=== PATIENT | male | born 1950 | race Caucasian/White ===

== ENCOUNTER 2024-10-17 20:07 | Emergency (ER) | payer MEDICARE ==
[~2024-10-17] VITALS: Ht 182.9 cm; Wt 123.8 kg
[2024-10-17 20:14] VITALS: TEMP 97.6
[2024-10-17 20:52] LABS: BASOPHILS # (AUTO) 0.05 K/uL (0.00-0.20); BASOPHILS % (AUTO) 0.8 % (0.0-5.0); EOSINOPHILS # (AUTO) 0.22 K/uL (0.00-0.70); EOSINOPHILS % (AUTO) 3.6 % (0.0-8.0); HEMATOCRIT 42.7 % (42-54); IMMATURE GRANULOCYTE ABSOLUTE 0.01 K/uL (0-1); LYMPHOCYTES # (AUTO) 2.6 K/uL (1.0-4.8); LYMPHOCYTES % (AUTO) 42.6 % (21.0-51.0); MEAN CORPUSCULAR HEMOGLOBIN 27.7 pg (27.0-33.0); MEAN CORPUSCULAR HGB CONC 32.6 g/dL (32.0-36.0); MEAN CORPUSCULAR VOLUME 85.1 fL (79-99); MONOCYTES # (AUTO) 0.6 K/uL (0.1-1.0); MONOCYTES % (AUTO) 9.5 % (3.0-13.0); NEUTROPHILS # (AUTO) 2.6 K/uL (1.8-7.7); NEUTROPHILS % (AUTO) 43.3 % (40.0-77.0); PLATELET COUNT (AUTO) 242 K/uL (130-400); RED BLOOD CELL COUNT(AUTO) 5.02 MIL/uL (4.50-6.20); RED CELL DISTRIBUTION WIDTH 14.5 % (11.0-15.5); WHITE BLOOD COUNT (AUTO) 6.1 K/uL (4.8-10.8)
[2024-10-17 21:07] LABS: CREATININE 1.2 mg/dL (0.5-1.3); POTASSIUM 4.2 mmol/L (3.5-5.1)
--- NOTE | 2024-10-17 21:58 | NUR ---
FINGER STICK GLUCOSE 109
[2024-10-17 22:12] VITALS: BP 152/79; PULSE 67; RESP 18; O2SAT 98
--- NOTE | 2024-10-17 22:21 | ERN ---
General Chief Complaint: Hypoglycemia Stated Complaint: LOW DIABETIC READINGS Time Seen by MD: 20:09 Time Seen by Midlevel: 20:09 Source: patient History of Present Illness Initial Comments Patient is a 74-year-old male with a past medical history of type 2 diabetes and hypertension presenting to the emergency department for evaluation of hypoglycemia. Patient reports feeling lightheaded and proceeded to check his sugar and it was allegedly in the 40s. The patient was given juice and candy with improvement blood sugar. However, throughout the day his glucometer has been reading "low" so he decided to report to the ER for further evaluation. Patient has no complaints on arrival. Patient states he takes Ozempic, metformin, and a long-acting insulin. Allergies: Coded Allergies: No Known Allergies (Unverified Allergy, Unknown, 10/17/24) Past Medical History Past Medical History: Diabetes-Type II, Hypertension Past Surgical History: None ROS Dictation CONSTITUTIONAL: Negative except for HPI HEAD/FACE: Negative except for HPI EENT: Negative except for HPI RESPIRATORY: Negative except for HPI GASTROINTESTINAL/ABDOMINAL: Negative except for HPI GENITOURINARY: Negative except for HPI MUSCULOSKELETAL: Negative except for HPI INTEGUMENTARY: Negative except for HPI NEUROLOGICAL/PSYCH: Negative except for HPI HEMATOLOGIC/LYMPHATIC: Negative except for HPI All Systems Negative, Except as noted above. 13 point review of systems assessed and all negative except for above. Physical Exam Physical Exam Dictation Vital Signs reviewed General Appearance: Alert, oriented x 3, no acute distress, well developed, nourished. Head and Face: non-traumatic. Eyes: PERRL, pink conjunctivas, eyelid no trauma, anterior chamber with arcus se nilis. Ears: Pinnas intact and no signs of trauma or erythema ear canals clear and no discharge TM no erythema Nose: No discharge, no bleeding. Oropharynx: Mouth normal, tongue pink, pharynx clear,no erythema, tonsils no exudates, no abscesses noted, mucous membrane moist Neck: Supple, non-tender, no thyromegaly, no masses, no JVD, no bruits Breast:Deferred Chest:No tenderness, no crepitus, no paradoxical movement, no retractions Lungs:Clear, well-ventilated, symmetric, no rales, no wheezing, no rhonchi, no stridor, good breath sounds bilaterally Heart: Regular rate, regular rhythm, no murmur, no gallops Vascular: no peripheral edema, Abdomen: Soft, positive bowel sounds, nondistended, no guarding, nontender, no rebound, no masses no hepatomegaly, no splenomegaly, no Reyes's sign, no hernias. Rectal: Deferred Genital: Deferred Neurological: Normal speech, motor function intact, sensory function intact Musculoskeletal: Neck nontender, full range of motion, back nontender, full range of motion, Extremities: nontender, full range of motion Skin: Color pink, dry, no turgor, no rash, no lacerations, no abrasions, no contusions. Lymphatic: Deferred Results Laboratory and Microbiology Lab and Micro Result Laboratory Tests Test 10/17/24 20:13 10/17/24 20:29 10/17/24 21:56 Whole Blood Glucose 131 MG/DL (70-110) H 109 MG/DL (70-110) White Blood Count 6.1 K/uL (4.8-10.8) Red Blood Count 5.02 MIL/uL (4.50-6.20) Hemoglobin 13.9 g/dL (14.0-18.0) L Hematocrit 42.7 % (42-54) Mean Corpuscular Volume 85.1 fL (79-99) Mean Corpuscular Hemoglobin 27.7 pg (27.0-33.0) Mean Corpuscular Hemoglobin Concent 32.6 g/dL (32.0-36.0) Red Cell Distribution Width 14.5 % (11.0-15.5) Platelet Count 242 K/uL (130-400) Mean Platelet Volume 9.3 fL (7.5-10.5) Immature Granulocyte % (Auto) 0.2 % (0-1) Neutrophils (%) (Auto) 43.3 % (40.0-77.0) Lymphocytes (%) (Auto) 42.6 % (21.0-51.0) Monocytes (%) (Auto) 9.5 % (3.0-13.0) Eosinophils (%) (Auto) 3.6 % (0.0-8.0) Basophils (%) (Auto) 0.8 % (0.0-5.0) Neutrophils # (Auto) 2.6 K/uL (1.8-7.7) Lymphocytes # (Auto) 2.6 K/uL (1.0-4.8) Monocytes # (Auto) 0.6 K/uL (0.1-1.0) Eosinophils # (Auto) 0.22 K/uL (0.00-0.70) Basophils # (Auto) 0.05 K/uL (0.00-0.20) Absolute Immature Granulocyte (auto 0.01 K/uL (0-1) Nucleated Red Blood Cells 0.0 % (0.0-0.19) Sodium Level 143 mmol/L (136-145) Potassium Level 4.2 mmol/L (3.5-5.1) Chloride Level 105 mmol/L (101-111) Carbon Dioxide Level 28 mmol/L (21-32) Blood Urea Nitrogen 22 mg/dL (7-18) H Creatinine 1.2 mg/dL (0.5-1.3) Glomerular Filtration Rate Calc 63 mL/min (>90) Random Glucose 119 mg/dL (70-105) H Total Calcium 8.8 mg/dL (8.5-10.1) Labs Reviewed?: Yes MDM MDM: Patient is a 74-year-old male with a past medical history of type 2 diabetes and hypertension presenting to the emergency department for evaluation of hypoglycemia. Patient reports feeling lightheaded and proceeded to check his sugar and it was allegedly in the 40s. The patient was given juice and candy with improvement blood sugar. However, throughout the day his glucometer has been reading "low" so he decided to report to the ER for further evaluation. Patient has no complaints on arrival. Patient states he takes Ozempic, metformin, and a long-acting insulin. On physical examination patient is in no acute distress. He was able to ambulate from the waiting room into the triaged area without assistance and with a normal gait. During my examination his sense her read low however fingerstick glucose revealed a glucose in the 130s. It appears his sensor/glucometer may be faulty. Plan was to obtain labs and observe patient for the next 1-2 hours. His CBC shows a normal white blood cell count of 6.1. His hemoglobin is stable at 13.9. His platelet counts are normal. His chemistries reveal a random glucose of 119. The patient was observed in the emergency department for an hour and a half. A repeat fingerst ick glucose was obtained which was 109. It appears his blood sugars trending downwards. The patient was offered something a eat but he refused stating that he will be eating when he gets home. I did offer admission for observation at least for 24 hours but he is refusing. Patient states he will be going home and eating dinner. is at bedside and states she will be checking him periodically throughout the night. If anything changes overnight they were advised to report to the ER for further evaluation. They will be calling his primary care doctor in the morning for a new prescription for a sensor/glucometer. The remainder of his chemistries are unremarkable. Patient will be discharged home with close return precautions Differential diagnosis: Hypoglycemia, electrolyte abnormality, dehydration There are no social concerns with this patient. Prescription drug management Prescriptions will include: None Medical management and examination interpretation discussions were had by me with other qualified healthcare professionals as indicated for the patient's care. ED Course Orders Procedure Category Date Status Time Cbc With Differential LAB 10/17/24 Complete 20:16 Basic Metabolic Panel LAB 10/17/24 Complete 20:16 Bedside Glucose CPOE 10/17/24 Transmitted Fingerstick 21:18 Vital Signs Date Time Temp Pulse Resp B/P (MAP) Pulse Ox O2 Delivery O2 Flow Rate FiO2 10/17/24 22:12 67 18 152/79 98 Room Air* 0 21 10/17/24 20:14 97.5 74 20 139/80 98 Room Air DX & DISP Disposition: Discharge Departure Impression: Primary Impression: Hypoglycemia Condition: Stable Additional Instructions: Initial your sugar on arrival was 131. We checked your blood sugar multiple times while in the emergency department and it appears to be trending downward slowly. You will need to talk to your primary care doctor for possible medication adjustment for diabetes. Please make sure you have a meal before going to bed. Return to the ER if you develop any new or worsening symptoms. Referrals: SELF,REFERRAL (PCP) Time of Disposition: 22:09 I have reviewed the case, and I agree with, Diagnosis and Plan I performed the substantive portion of the visit. I have reviewed and person ally made and approve the management plan that is documented in the note by myself or the KELLEY. I acknowledge for responsibility for the patient's management plan. MICHAEL ODOM Oct 17, 2024 22:21
== END 2024-10-17 22:28 | disposition home or self-care (01) ==
LOC: EDH 20:07
DX: E11.649 Type 2 diabetes mellitus with hypoglycemia without coma (principal); I10 Essential (primary) hypertension
CPT/HCPCS: 36415; 80048; 82948; 85025; 99283